=== PATIENT | female | born 1930 | race Caucasian/White ===

== ENCOUNTER 2018-11-13 11:19 | Emergency (ER) | payer MEDICAID ==
[~2018-11-13] VITALS: Ht 121.9 cm; Wt 44.5 kg
[~2018-11-13 11:19] MED LIST: MAC100 PO; TAM75 PO
[2018-11-13 11:38] VITALS: BP 147/92; Ht 121.9 cm; Wt 44.5 kg
== END 2018-11-13 12:05 | disposition home or self-care (01) ==
LOC: ED 11:19
DX: B86 Scabies (principal); M19.90 Unspecified osteoarthritis, unspecified site

== ENCOUNTER 2019-12-07 18:21 | Emergency (ER) | payer OTHER ==
[~2019-12-07] VITALS: Ht 154.9 cm; Wt 43.1 kg
[2019-12-07 18:28] VITALS: Ht 154.9 cm; Wt 43.1 kg
[2019-12-07 19:39] LABS: CALCIUM 8.3 mg/dL (8.5-10.1); CHLORIDE SERUM 101 mmol/L (98-107); CREATININE SERUM 0.8 mg/dL (0.6-1.0); GLUCOSE SERUM 105 mg/dL (74-106); SODIUM SERUM 136 mmol/L (136-145)
[2019-12-07 19:44] LABS: ALBUMIN 3.6 g/dL (3.4-5.0); ALKALINE PHOSPHATASE 88 U/L (46-116); ALT/SGPT 18 U/L (14-59); AST/SGOT 19 U/L (15-37); BILIRUBIN TOTAL 0.6 mg/dL (0.20-1.00); LIPASE 67 IU/L (73-393); TOTAL PROTEIN, SERUM 7.2 g/dL (6.4-8.2)
[2019-12-07 19:45] LABS: BASOPHIL % 0.6 % (0-2); PLATELET COUNT 132 x10^3mcL (130-400); RED CELL DISTRIBUTION WIDTH 13.9 % (11.5-14.5)
[2019-12-08 01:00] VITALS: BP 141/66
== END 2019-12-08 01:03 | disposition home or self-care (01) ==
LOC: ED 18:21
PROVIDERS: Emergency Medicine
DX: K29.70 Gastritis, unspecified, without bleeding (principal); S32.029A Unspecified fracture of second lumbar vertebra, initial encounter for closed fracture; M19.90 Unspecified osteoarthritis, unspecified site; Z88.6 Allergy status to analgesic agent; X58.XXXA Exposure to other specified factors, initial encounter; Y93.89 Activity, other specified; Y92.89 Other specified places as the place of occurrence of the external cause; Y99.8 Other external cause status
CPT/HCPCS: C9113; J2405; J7030; Q0092